=== PATIENT | female | born 1960 | race American Indian/Alaskan Native ===

== ENCOUNTER 2017-02-21 08:57 | Emergency (ER) | payer BC, OTHER ==
--- NOTE | 2017-02-21 09:09 | Emergency Department Report ---
Chief Complaint: Extremity Injury, Upper Stated Complaint: POSSIBLE CVA Time Seen by Provider: 02/21/17 09:09 - HPI History of Present Illness: Patient here reports that last week she was doing some lifting and yard work this is about 5 days ago. She says she has left arm pain and left ear pain. She is complaining of pain to her facial area. At first she said this was her head but when I ask her what part of her head she points to her facial area around her nose. She says she has nasal congestion with dizziness. Patient states that she may have passed out after she had nausea and vomiting. She says she had a positive nausea and vomiting for couple days. Patient says she had just had mouth surgery a few weeks for extraction of tooth . Pain is 8 out of 10 and tingling to her left forearm radiating into her hand. She said her left arm feels weak and she thinks she might of had a stroke. No previous episode of stroke her vital signs are stable, she has a history of high blood pressure, osteoarthritis and high cholesterol. Patient says she felt dizzy and then she fell. She is wearing sunglasses because she said she has sensitivity to light. - ROS Review of Systems: All systems are negative unless stated in HPI above - Exam Vital Signs: Vital Signs 02/21/17 09:00 Temperature 99.3 F Pulse Rate 102 H Respiratory 18 Rate Blood Pressure 135/81 O2 Sat by Pulse 98 Oximetry Physical Exam: Gen.: This is a 56-year-old patient that is in a wheelchair. Well-nourished well-developed in no acute distress. Extremity: Decreased range of motion to left upper extremity. +2 pulses in extremities. Capillary refill less than 3 seconds. No clubbing cyanosis or edema to extremities. Eyes: Pupils equal and reactive to light, bilateral EOM intact. Nose: Bilateral nasal mucosa congested with drainage. Maxillary sinus tenderness to palpate Mini neurological exam: Speech is clear and fluid, GCS 15. Patient is alert and oriented 3 no facial drooping. 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 MSE screening note: Focused history and physical exam performed. Due to findings the following was ordered:see mdm ED Medical Decision Making - Medical Decision Making MDM: Patient screened by Provider in triage area ,appropriate labs and diagnostic tests order based on her complaints. Patient awaiting to be seen by attending physician in main ED. ED Disposition for MSE Condition: Stable
[2017-02-21 10:00] LABS: Basophils % (Auto) 0.7 % (0.0-1.8); Eosinophils % (Auto) 3.5 % (0.0-4.3); Hematocrit 47.4 % (30.3-42.9); Hemoglobin 16.2 gm/dl (10.1-14.3); Mean Corpuscular HGB Conc 34 % (30-34); Mean Corpuscular Hemoglobin 29 pg (28-32); Mean Corpuscular Volume 86 fl (79-97); Platelet Count 240 K/mm3 (140-440); Red Cell Distribution Width 14.1 % (13.2-15.2); White Blood Count 7.8 K/mm3 (4.5-11.0)
[2017-02-21 10:09] LABS: INR 0.95 (0.87-1.13)
[2017-02-21 10:10] LABS: Partial Thromboplastin Time 27.7 Sec. (24.2-36.6)
--- NOTE | 2017-02-21 10:57 | Cat Scan Report ---
CT HEAD WITHOUT CONTRAST: HISTORY: Syncope. No comparison. A 3.5 x 1.7 cm area of diminished attenuation is identified in the postero-medial left cerebellar hemisphere. This has the appearance of a subacute ischemic infarct. There is no evidence for hemorrhage or significant mass effect. A 1 cm area of increased attenuation is identified in the posterior right basal ganglia. Internal density measures 49 Hounsfield units which is concerning for a subacute, or possibly acute, intraparenchymal hemorrhage. Given the patient's history, I favor a subacute hemorrhage. The remaining brain parenchyma demonstrates normal density. The oliveira-white interface is well defined. Normal ventricular size. No chronic infarct or extra-axial fluid collection. The mastoid air cells and visualized portions of the sinuses are normal. IMPRESSION: Left cerebellar ischemic stroke as described above. 1 cm hemorrhage in the posterior right basal ganglia. These findings were discussed with Pratibha Calles in the acute care unit at 1042 hrs.
--- NOTE | 2017-02-21 11:12 | XRay Report ---
Left forearm: Injury; pain. There is a depression deformity of the soft tissues in the proximal forearm associated with increased fatty lucency with no apparent ulceration identified. It is unclear as to whether this is due to an extrinsic pressure. Clinical correlation advised. No foreign body and no underlying bone abnormalities identified. Impression: Suspect proximal soft tissue injury. Correlate clinically.
--- NOTE | 2017-02-21 11:14 | Emergency Department Report ---
ED Headache HPI - General Chief Complaint: Extremity Injury, Upper Stated Complaint: POSSIBLE CVA Time Seen by Provider: 02/21/17 09:09 Source: patient - History of Present Illness Initial Comments: 56-year-old female here with headache dizziness and difficulty with left arm. Patient states that on she developed a headache and felt lightheaded dizzy and nauseous and there is a question whether or not she passed out since that time she's been in the bed and felt lightheaded dizzy feels like she cannot get out of bed. Denies fevers chills. She is alert and oriented. She' s never had a history of stroke in the past. Timing/Duration: other (5 days) Quality: moderate Associated Symptoms: loss of consciousness Allergies/Adverse Reactions: Allergies shellfish derived Adverse Reaction (Verified 07/09/13 06:35) Hives Home Medications: Ambulatory Orders ALBUTEROL Inhaler [ProAir HFA Inhaler] 2 puff IH PRN PRN 07/01/13 Acetaminophen with Codeine [Acetaminophen-Codeine #2 TAB] 1 each PO Q6HR PRN Aspirin [Aspirin TAB] 81 mg PO QDAY 07/01/13 Cholecalciferol (Vitamin D3) [Vitamin D3 2,000 unit] 2,000 unit PO QDAY Gabapentin 300 mg PO DAILY 07/01/13 Lisinopril/Hydrochlorothiazide [Zestoretic 20-12.5 mg] 1 tab PO QDAY 07/01/13 Metoprolol [Lopressor TAB] 25 mg PO BID 07/01/13 Simvastatin 20 mg PO QDAY 07/01/13 HYDROcodone/APAP 7.5-325 [[place] 7.5-325 mg TAB] 1 each PO Q6H PRN #40 tablet 09/16 Diphenhydramine HCl [Benadryl Allergy TAB] 25 mg PO Q6H #40 tablet 01/22/16 EPINEPHrine (NF) [Epipen (Nf)] 0.3 mg IM ONCE #1 syringekit 01/22/16 Prednisone [predniSONE 10 mg (6-Day Pack, 21 Tabs)] 10 mg PO .TAPER #1 tab.ds.pk 01/22/16 ED Review of Systems ROS: Stated complaint: POSSIBLE CVA Other details as noted in HPI Comment: All other systems reviewed and negative Constitutional: denies: chills, fever Eyes: denies: eye pain, eye discharge, vision change ENT: denies: ear pain, throat pain Respiratory: denies: cough, shortness of breath, wheezing Cardiovascular: denies: chest pain, palpitations Endocrine: no symptoms reported Gastrointestinal: denies: abdominal pain, nausea, diarrhea Genitourinary: denies: urgency, dysuria, discharge Musculoskeletal: denies: back pain, joint swelling, arthralgia Skin: denies: rash, lesions Neurological: headache, weakness, abnormal gait, vertigo. denies: paresthesias Psychiatric: denies: anxiety, depression Hematological/Lymphatic: denies: easy bleeding, easy bruising ED Past Medical Hx - Past Medical History Previous Medical History?: Yes Hx Hypertension: Yes (2008, + HYPERLIPIDEMIA) - Surgical History Past Surgical History?: Yes Additional Surgical History: knee surgery - Family History Family history: no significant - Social History Smoking Status: Current Every Day Smoker Substance Use Type: Alcohol - Medications Home Medications: Home Medications Medication Instructions Recorded Confirmed Last Taken Type ALBUTEROL Inhaler [ProAir HFA 2 puff IH PRN PRN 07/01/13 07/09/13 01/03/13 History Inhaler] Acetaminophen with Codeine 1 each PO Q6HR PRN 07/01/13 07/09/13 07/08/13 History [Acetaminophen-Codeine #2 TAB] Aspirin [Aspirin TAB] 81 mg PO QDAY 07/01/13 07/09/13 07/02/13 History Cholecalciferol (Vitamin D3) 2,000 unit PO QDAY 07/01/13 07/09/13 07/08/13 History [Vitamin D3 2,000 unit] Gabapentin 300 mg PO DAILY 07/01/13 07/09/13 07/02/13 History Lisinopril/Hydrochlorothiazide 1 tab PO QDAY 07/01/13 07/09/13 07/08/13 History [Zestoretic 20-12.5 mg] Metoprolol [Lopressor TAB] 25 mg PO BID 07/01/13 07/09/13 07/08/13 History Simvastatin 20 mg PO QDAY 07/01/13 07/09/13 07/08/13 History HYDROcodone/APAP 7.5-325 [[place] 1 each PO Q6H PRN #40 tablet 07/09/13 Unknown Rx 7.5-325 mg TAB] Diphenhydramine HCl [Benadryl 25 mg PO Q6H #40 tablet 01/22/16 Unknown Rx Allergy TAB] EPINEPHrine (NF) [Epipen (Nf)] 0.3 mg IM ONCE #1 syringekit 01/22/16 Unknown Rx Prednisone [predniSONE 10 mg 10 mg PO .TAPER #1 tab.ds.pk 01/22/16 Unknown Rx (6-Day Pack, 21 Tabs)] ED Physical Exam - General Limitations: No Limitations General appearance: alert, in no apparent distress - Head Head exam: Present: atraumatic, normocephalic - Eye Eye exam: Present: normal appearance - ENT ENT exam: Present: mucous membranes moist - Neck Neck exam: Present: normal inspection - Respiratory Respiratory exam: Present: normal lung sounds bilaterally. Absent: respiratory distress - Cardiovascular Cardiovascular Exam: Present: regular rate, normal rhythm, normal heart sounds. Absent: systolic murmur, diastolic murmur, rubs, gallop - GI/Abdominal GI/Abdominal exam: Present: soft, normal bowel sounds - Extremities Exam Extremities exam: Present: normal inspection - Back Exam Back exam: Present: normal inspection - Neurological Exam Neurological exam: Present: alert, oriented X3 - Expanded Neurological Exam Expanded Neurological exam: Present: ataxia. Absent: memory loss-remote event, memory loss-recent event, receptive aphasia Speech: Present: fluid speech Cranial nerves: EOM's Intact: Normal, Gag Reflex: Normal, Tongue Deviation: Normal, Nystagmus: Normal, Facial Sensation: Normal, Facial Palsy with Forehead Movement: Normal, Facial Palsy without Forehead Movement: Normal Cerebellar function: Finger to Nose: Abnormal Left, Heel to Gonzalez: Abnormal Left Upper motor neuron: Ezequiel Neglect: Normal, Pronator Drift: Normal, Babinski Sign : Normal, Sensory Extinction: Normal Sensory exam: Upper Extremity Light Touch: Normal, Upper Extremity Pin Prick: Normal, Upper Extremity Temperature: Normal Motor strength exam: RUE: 5, LUE: 4, RLE: 5, LLE: 5 Best Eye Response ([place]): (4) open spontaneously Best Motor Response ([place]): (6) obeys commands Best Verbal Response ([place]): (5) oriented Jennifer Total: 15 - Psychiatric Psychiatric exam: Present: normal affect, normal mood - Skin Skin exam: Present: warm, dry, intact, normal color. Absent: rash ED Course Vital Signs 02/21/17 02/21/17 09:00 11:20 Temperature 99.3 F 98.2 F Pulse Rate 102 H 92 H Respiratory 18 14 Rate Blood Pressure 135/81 Blood Pressure 137/70 [Right] O2 Sat by Pulse 98 97 Oximetry ED Medical Decision Making - Lab Data Result diagrams: 02/21/17 09:38 02/21/17 09:38 Laboratory Results - last 24 hr 02/21/17 02/21/17 02/21/17 09:38 09:38 09:38 WBC 7.8 RBC 5.50 H Hgb 16.2 H Hct 47.4 H MCV 86 MCH 29 MCHC 34 RDW 14.1 Plt Count 240 Lymph % (Auto) 40.5 H [place] % (Auto) 6.3 Eos % (Auto) 3.5 Baso % (Auto) 0.7 Lymph # 3.2 [place] # 0.5 Eos # 0.3 Baso # 0.1 Seg Neutrophils % 49.0 Seg Neutrophils # 3.8 PT 13.2 INR 0.95 APTT 27.7 TSH 1.550 - Medical Decision Making 56-year-old female here with complaint of headache dizziness and vertigo. Patient has a CT that shows a small right basal ganglia bleed and a left cerebellar stroke. She is currently mentating well. I plan to transfer the patient to a center with a stroke neurologist and neurosurgeon. Discussed case [facility] who was unable to accept the patient. Discussed case with [facility] and in attempting to transfer there. Discussed case with both [facility] neurosurgery and neurologist - the patient is accepted in transfer to [facility]. Blood pressure is currently stable and no management is needed. Patient is mentating well. Discussed this plan with the patient and her friend and she is comfortable with this plan and will initiate transfer. Portions of this chart were dictated with dictation software. There may be dictation errors contained within this note.. Critical Care Time: Yes Critical care attestation.: If time is entered above; I have spent that time in minutes in the direct care of this critically ill patient, excluding procedure time. Critical Care Time: 75 ED Disposition Clinical Impression: Intracranial hemorrhage, Cerebellar stroke Disposition: [id number]/[id number] ANOTHER TYPE HLTHCARE Is pt being admited?: No Condition: Critical
[2017-02-21 11:19] LABS: Alanine Aminotransferase 14 units/L (7-56); Albumin 4.6 g/dL (3.9-5); Albumin/Globulin Ratio 1.1 %; Alkaline Phosphatase 83 units/L (35-129); Anion Gap 21 mmol/L; Blood Urea Nitrogen 21 mg/dL (7-17); Calcium 10.5 mg/dL (8.4-10.2); Carbon Dioxide 21 mmol/L (22-30); Chloride 102.8 mmol/L (98-107); Glucose 112 mg/dL (65-100); Lipase 25 units/L (13-60); Potassium 3.5 mmol/L (3.6-5.0); Sodium 141 mmol/L (137-145); Total Protein 8.8 g/dL (6.3-8.2)
[2017-02-21 12:59] LABS: Bacteria,Urine 2+ /HPF (Negative); Bilirubin,Urine NEG (Negative); Blood,Urine NEG (Negative); Ketones,Urine NEG (Negative); Leukocyte Esterase,Urine NEG (Negative); Mucus,Urine FEW /HPF; Nitrite,Urine NEG (Negative); Protein,Urine <15 mg/dL mg/dL (Negative); Urobilinogen,Urine < 2.0 mg/dL (<2.0)
[2017-02-21] MEDS ORDERED: TYLENOL PO ONE (14:11)
[2017-02-21 15:04] VITALS: BP 97/75
== END 2017-02-21 15:25 | disposition other institution (70) ==
LOC: ED 08:57
DX: I62.9 Nontraumatic intracranial hemorrhage, unspecified (principal); I63.9 Cerebral infarction, unspecified; F17.200 Nicotine dependence, unspecified, uncomplicated; I10 Essential (primary) hypertension; Z91.013 Allergy to seafood
CPT/HCPCS: 36415; 70450; 80053; 81001; 83690; 83735; 84443; 84484; 85025; 85610; 85730; 93005; 93010; 99292

== ENCOUNTER 2022-03-01 17:29 | Emergency (ER) | payer MEDICARE, OTHER ==
[2022-03-01 18:14] VITALS: BP 146/100
== END 2022-03-02 13:05 | disposition left against medical advice (07) ==
LOC: ED 17:29
DX: M54.2 Cervicalgia (principal); Z98.890 Other specified postprocedural states; Z53.21 Procedure and treatment not carried out due to patient leaving prior to being seen by health care provider